=== PATIENT | female | born 1975 | race Caucasian/White ===

== ENCOUNTER 2019-11-15 16:51 | Emergency (ER) | payer BC, SELFPAY ==
--- NOTE | ~2019-11-15 | XR_ITS ---
XR ankle LT min 3V 11/15/2019 17:14 Indication: Inversion injury. Left ankle pain. Procedure: 4 views left ankle Comparison: No prior studies for comparison. Findings: No fracture, subluxation or dislocation. Ankle mortise intact. Talar dome is unremarkable. There are degenerative changes of the talonavicular joint. No significant soft tissue abnormality. Impression: 1: No acute bone or joint abnormality. Reviewed, dictated and finalized at location A. Impression: 1: No acute bone or joint abnormality.
[2019-11-15 17:03] VITALS: BP 151/97; PULSE 100; RESP 14; TEMP 37.2; O2SAT 99
--- NOTE | 2019-11-15 17:08 | ED.LOWEXIN ---
HPI - Extremity Injury (Lower) General Chief Complaint: Extremity Injury, Lower Stated Complaint: Injury to left foot Time Seen by Provider: 11/15/19 17:08 Source: patient and family History of Present Illness HPI Narrative: patient presents with pain to left ankle/foot. patient states she was going down the stairs at home and rolled her ankle. no deformity slight swelling no bruising noted no open areas. no numbness or tingling . denies any other injuries. MD complaint: ankle injury and foot injury Injury: Left: ankle and foot Place: home Severity: mild Severity scale (1-10): 2 Relieving factors: nothing Related Data Home Medications Medication Instructions Recorded Confirmed No Home Medications 11/15/19 11/15/19 Allergies Allergy/AdvReac Type Severity Reaction Status Date / Time No Known Allergies Allergy Verified 11/15/19 17:08 Review of Systems Review of Systems: Narrative: CONSTITUTIONAL: Denies fever, chills, or sweats. EYES: Denies visual changes, redness, or discharge. ENT: Denies rhinorrhea, congestion, sore throat, or otalgia. CARDIOVASCULAR: Denies chest pain, palpitations, or edema. RESPIRATORY: Denies cough or dyspnea. GASTROINTESTINAL: Denies abdominal pain, nausea, vomiting, or diarrhea. GENITOURINARY: Denies dysuria or hematuria. SKIN: Denies rash or itching. MUSCULOSKELETAL: Denies back pain, joint pain, or myalgia. Base of left ankle top of left foot. NEUROLOGIC: Denies headache, numbness, or weakness. PSYCHIATRIC: Denies anxiety or depression. PMFSH Comments At time of signature, agree with nursing past medical, surgical, social and family history. There is no relevant family history pertinent to the presenting complaint Exam Narrative: Exam Narrative: GENERAL: Well-appearing, well-nourished, and in no acute distress. HEAD: Normocephalic, atraumatic. EYES: PERRLA and EOMI. ENT: Nares clear, no rhinorrhea or epistaxis. Mucous membranes moist. NECK: Supple. CHEST: Clear to auscultation. No respiratory distress. HEART: Regular rate and rhythm. No murmur heard. Normal peripheral pulses. ABDOMEN: Soft, nontender, nondistended, normal active bowel sounds. EXTREMITIES: Normal range of motion. No edema. NORMAL DP PULSE, NORMAL CAP REFILL. NORMAL SENSATION. NVI. NO TENDERNESS TO FOOT SENSATION NVI NORMAL DORSALIS PEDIS PULSE. NORMAL MOVEMETN OF ALL TOES. NORMAL CAPILLARY REFILL. NORMAL SKIN COLOR. NO SKIN LESIONS SKIN TNTACT NO CALF PAIN NO CALF TENDERNESS NOCALF SWELLING NORMAL ROM OF KNEE.KIN INTACT. NORMAL DP PULSE, NORMAL CAP REFILL. NORMAL SENSATION. SKIN: Warm, dry, no rash. NEURO: No focal deficits. Alert and oriented x3. [place] Coma Scale Eye Opening: Spontaneous 4 [place] Coma Scale Motor: Obeys Commands 6 [place] Coma Scale Verbal: Oriented 5 [place] Coma Scale Total 15 Course Vital Signs Vital signs: Vital Signs Temperature 37.2 C 11/15/19 17:03 Pulse Rate 100 11/15/19 17:03 Respiratory Rate 14 11/15/19 17:03 Blood Pressure 151/97 H 11/15/19 17:03 Pulse Oximetry 99 11/15/19 17:03 Temperature 37.2 C 11/15/19 17:03 Pulse Rate 100 11/15/19 17:03 Respiratory Rate 14 11/15/19 17:03 Blood Pressure 151/97 H 11/15/19 17:03 Pulse Oximetry 99 11/15/19 17:03 Addressed elevated BP today. Today's blood pressure higher than recommended range. Discussed importance of follow -up with PCP and possible [facility] effects/cardiovascular events related to HTN. Currently patient denies headache, dizziness, vision changes, CP or shortness of breath. MDM - Extremity Injury (Lower) Differential Diagnosis Differential diagnosis: Likely ankle sprain and strain, acute internal derangement of knee, fracture of femur, fracture of hip, puncture wound of foot, fracture of toe, ankle fracture and other Critical Care Time Critical Care Time Critical Care Time: No Discharge Plan Discharge Clinical Impression: Ankle sprain and strain, Contusion of
== END 2019-11-15 17:27 | disposition home or self-care (01) ==
PROVIDERS: Emergency Provider Nurse Practitioner Family; PCP Internal Medicine Geriatric Medicine
DX: S93.402A Sprain of unspecified ligament of left ankle, initial encounter (principal); S96.912A Strain of unspecified muscle and tendon at ankle and foot level, left foot, initial encounter; X50.9XXA Other and unspecified overexertion or strenuous movements or postures, initial encounter; S90.32XA Contusion of left foot, initial encounter
CPT/HCPCS: 73610; 99213; G0463